=== PATIENT | female | born 1985 | race Two or more races ===

== ENCOUNTER 2019-07-27 15:13 | Emergency (ER) | payer MEDICAID, OTHER ==
[~2019-07-27] VITALS: Ht 165.1 cm; Wt 99.3 kg
[2019-07-27 16:34] VITALS: BP 129/78
== END 2019-07-27 17:14 | disposition home or self-care (01) ==
LOC: ER 15:13
DX: S01.21XA Laceration without foreign body of nose, initial encounter (principal); W23.0XXA Caught, crushed, jammed, or pinched between moving objects, initial encounter; Y93.89 Activity, other specified; Y92.89 Other specified places as the place of occurrence of the external cause; Y99.8 Other external cause status
CPT/HCPCS: 70160

== ENCOUNTER 2020-02-24 04:08 | Emergency (ER) | payer MEDICAID ==
[~2020-02-24] VITALS: Ht 165.1 cm; Wt 99.8 kg
[2020-02-24 04:16] VITALS: BP 147/91
[2020-02-24] MEDS ORDERED: hydrOXYzine HCL 25 MG/ML VL IM ONE (05:00)
[2020-02-24] MEDS ORDERED: hydrOXYzine 25 MG TAB or CAP PO ONE (05:15)
[2020-02-24 06:33] LABS: Eosinophils # (auto) 0.2 10 ^3/uL (0-0.8); Hemoglobin 13.8 g/dL (12.2-16.2); Lymphocytes # (auto) 2.7 10 ^3/uL (0.4-5.4)
[2020-02-24 06:35] LABS: Basophils # (auto) 0 10 ^3/uL (0-0.2); Basophils % (auto) 0.6 % (0.0-2.0); Eosinophils % (auto) 2.9 % (0.0-7.0); Hematocrit 41.8 % (36.0-46.0); Lymphocytes % (auto) 33.8 % (10.0-50.0); Mean Corpuscular Hemoglobin 26.2 pg (28.0-32.0); Mean Corpuscular Hgb Conc. 33.1 g/dL (32.0-36.0); Mean Corpuscular Volume 79.2 fL (80.0-100.0); Monocytes # (auto) 0.4 10 ^3/uL (0-1.3); Monocytes % (auto) 5.4 % (0.0-12.0); Neutrophils # (auto) 4.5 10 ^3/uL (1.6-8.6); Neutrophils % (auto) 57.3 % (37.0-80.0); Nucleated Red Blood Cells % 0.1 %; Platelet Count (auto) 257 10^3/uL (140-450); Red Blood Cells 5.28 10^6/uL (4.0-5.20); Red Cell Distribution Width 14.7 % (11.8-14.3); White Blood Cell 7.9 10^3/uL (4.4-10.8)
[2020-02-24 06:39] LABS: Albumin 3.7 g/dL (3.4-5.0); Anion Gap 7 (5-15); Blood Urea Nitrogen 10 mg/dL (7-18); Calcium 9.1 mg/dL (8.5-10.1); Carbon Dioxide 24 mmol/L (21-32); Chloride 106 mmol/L (98-107); Glucose 101 mg/dL (74-106); Sodium 137 mmol/L (136-145)
[2020-02-24 06:45] LABS: Alanine Aminotransferase 32 U/L (13-56); Alkaline Phosphatase 72 U/L (45-117); Aspartate Aminotransferase 17 U/L (15-37); BUN/Creatinine Ratio 15.9; Bilirubin, Total 0.2 mg/dL (0.2-1.0); GFR African American 138 mL/min; GFR Non-African American 114 mL/min; Total Protein 7.6 g/dL (6.4-8.2)
== END 2020-02-24 07:18 | disposition home or self-care (01) ==
LOC: ER 04:08 → EDBD 04:08 → ER 07:18
DX: F41.9 Anxiety disorder, unspecified (principal)
CPT/HCPCS: 36415; 80053; 84443; 84484; 85025

== ENCOUNTER 2020-02-24 09:30 | Emergency (ER) | payer MEDICAID ==
[~2020-02-24] VITALS: Ht 165.1 cm; Wt 99.3 kg
[2020-02-24 13:18] VITALS: BP 137/73
== END 2020-02-24 13:27 | disposition home or self-care (01) ==
LOC: ER 09:30
DX: F41.1 Generalized anxiety disorder (principal); R07.89 Other chest pain
CPT/HCPCS: 36415; 84484; 93005

== ENCOUNTER 2021-01-19 23:43 | Emergency (ER) | payer MEDICAID ==
[~2021-01-19] VITALS: Ht 160 cm; Wt 77.1 kg
[2021-01-20 01:54] VITALS: BP 115/63
[2021-01-20 02:12] LABS: Albumin 3.3 g/dL (3.4-5.0); BUN/Creatinine Ratio 16.7; Calcium 8.7 mg/dL (8.5-10.1); Potassium 3.3 mmol/L (3.5-5.1)
[2021-01-20 02:13] LABS: Basophils # (auto) 0.1 10 ^3/uL (0-0.2); Basophils % (auto) 1.3 % (0.0-2.0); Eosinophils # (auto) 0.1 10 ^3/uL (0-0.8); Eosinophils % (auto) 1.4 % (0.0-7.0); Hematocrit 39.3 % (36.0-46.0); Hemoglobin 13.7 g/dL (12.2-16.2); Lymphocytes # (auto) 3.2 10 ^3/uL (0.4-5.4); Mean Corpuscular Hemoglobin 26.8 pg (28.0-32.0); Mean Corpuscular Hgb Conc. 34.8 g/dL (32.0-36.0); Mean Corpuscular Volume 76.9 fL (80.0-100.0); Monocytes # (auto) 0.4 10 ^3/uL (0-1.3); Monocytes % (auto) 5.4 % (0.0-12.0); Neutrophils # (auto) 3.1 10 ^3/uL (1.6-8.6); Neutrophils % (auto) 44.9 % (37.0-80.0); Nucleated Red Blood Cells % 0.4 %; Red Cell Distribution Width 14.8 % (11.8-14.3); White Blood Cell 6.9 10^3/uL (4.4-10.8)
[2021-01-20 02:15] LABS: Bilirubin, Total 0.4 mg/dL (0.2-1.0); Total Protein 7.4 g/dL (6.4-8.2)
[2021-01-20] MEDS ORDERED: POTASSIUM CHL 20 Meq TABLET PO ONE (02:30)
== END 2021-01-20 04:36 | disposition home or self-care (01) ==
LOC: EDBD 23:43 → ER 23:47
DX: F41.9 Anxiety disorder, unspecified (principal); E86.0 Dehydration
CPT/HCPCS: 36415; 80053; 84702; 85025

== ENCOUNTER 2021-01-21 01:06 | Emergency (ER) | payer MEDICAID ==
[~2021-01-21] VITALS: Ht 165.1 cm; Wt 77.6 kg
[2021-01-21 05:10] VITALS: BP 123/91
[2021-01-21] MEDS ORDERED: hydrOXYzine 25 MG TAB or CAP PO ONE (06:45)
== END 2021-01-21 06:54 | disposition home or self-care (01) ==
LOC: ER 01:15
DX: J06.9 Acute upper respiratory infection, unspecified (principal); F41.9 Anxiety disorder, unspecified; F32.9 Major depressive disorder, single episode, unspecified; Z20.822 Contact with and (suspected) exposure to COVID-19
CPT/HCPCS: 36415; 87426

== ENCOUNTER 2021-01-21 20:19 | Emergency (ER) | payer MEDICAID ==
[~2021-01-21] VITALS: Ht 152.4 cm; Wt 99.8 kg
[2021-01-21 22:55] VITALS: BP 122/84
== END 2021-01-22 00:17 | disposition home or self-care (01) ==
LOC: EDBD 20:19 → ER 20:22
DX: J06.9 Acute upper respiratory infection, unspecified (principal)
CPT/HCPCS: 93005

== ENCOUNTER 2021-01-22 17:59 | Emergency (ER) | payer MEDICAID ==
[~2021-01-22] VITALS: Ht 165.1 cm; Wt 104.3 kg
[2021-01-22 19:22] LABS: Basophils # (auto) 0 10 ^3/uL (0-0.2); Eosinophils # (auto) 0.1 10 ^3/uL (0-0.8); Hemoglobin 13.5 g/dL (12.2-16.2); Monocytes # (auto) 0.4 10 ^3/uL (0-1.3); Neutrophils # (auto) 4.5 10 ^3/uL (1.6-8.6); Red Cell Distribution Width 15.1 % (11.8-14.3)
[2021-01-22 19:23] LABS: Basophils % (auto) 0.4 % (0.0-2.0); Eosinophils % (auto) 1.5 % (0.0-7.0); Hematocrit 39.5 % (36.0-46.0); Lymphocytes # (auto) 2.4 10 ^3/uL (0.4-5.4); Lymphocytes % (auto) 32.7 % (10.0-50.0); Mean Corpuscular Hemoglobin 26.6 pg (28.0-32.0); Mean Corpuscular Hgb Conc. 34.1 g/dL (32.0-36.0); Mean Corpuscular Volume 77.9 fL (80.0-100.0); Monocytes % (auto) 5.1 % (0.0-12.0); Neutrophils % (auto) 60.3 % (37.0-80.0); Nucleated Red Blood Cells % 0.1 %; Red Blood Cells 5.07 10^6/uL (4.0-5.20); White Blood Cell 7.5 10^3/uL (4.4-10.8)
[2021-01-22 19:40] LABS: Albumin 3.8 g/dL (3.4-5.0); Anion Gap 6 (5-15); Blood Urea Nitrogen 16 mg/dL (7-18); Calcium 8.7 mg/dL (8.5-10.1); Carbon Dioxide 24 mmol/L (21-32); Chloride 112 mmol/L (98-107); Glucose 92 mg/dL (74-106); Magnesium 2.5 mg/dL (1.6-2.6); Sodium 142 mmol/L (136-145)
[2021-01-22 19:46] LABS: Alanine Aminotransferase 39 U/L (13-56); Alkaline Phosphatase 58 U/L (45-117); Aspartate Aminotransferase 20 U/L (15-37); BUN/Creatinine Ratio 20.8; Bilirubin, Total 0.6 mg/dL (0.2-1.0); GFR African American 109 mL/min; GFR Non-African American 90 mL/min; Total Protein 8.1 g/dL (6.4-8.2)
[2021-01-23 01:00] VITALS: BP 126/76
== END 2021-01-23 04:35 | disposition home or self-care (01) ==
LOC: ER 18:03
DX: R07.89 Other chest pain (principal)
CPT/HCPCS: 36415; 71045; 80053; 83735; 84484; 84702; 85025; 93005

== ENCOUNTER 2021-02-02 18:23 | Emergency (ER) | payer MEDICAID ==
[~2021-02-02] VITALS: Ht 165.1 cm; Wt 99.8 kg
[2021-02-02 20:01] LABS: Basophils # (auto) 0 10 ^3/uL (0-0.2); Eosinophils # (auto) 0.2 10 ^3/uL (0-0.8); Eosinophils % (auto) 1.9 % (0.0-7.0); Hemoglobin 12.6 g/dL (12.2-16.2); Lymphocytes # (auto) 2.7 10 ^3/uL (0.4-5.4); Monocytes # (auto) 0.4 10 ^3/uL (0-1.3)
[2021-02-02 20:02] LABS: Basophils % (auto) 0.4 % (0.0-2.0); Hematocrit 37.1 % (36.0-46.0); Lymphocytes % (auto) 32.9 % (10.0-50.0); Mean Corpuscular Hemoglobin 26.6 pg (28.0-32.0); Mean Corpuscular Hgb Conc. 34.1 g/dL (32.0-36.0); Mean Corpuscular Volume 78.1 fL (80.0-100.0); Monocytes % (auto) 4.7 % (0.0-12.0); Neutrophils # (auto) 4.9 10 ^3/uL (1.6-8.6); Neutrophils % (auto) 60.1 % (37.0-80.0); Red Blood Cells 4.74 10^6/uL (4.0-5.20); Red Cell Distribution Width 15.2 % (11.8-14.3); White Blood Cell 8.2 10^3/uL (4.4-10.8)
[2021-02-02 20:21] LABS: Albumin 3.4 g/dL (3.4-5.0); Calcium 8.8 mg/dL (8.5-10.1); Potassium 3.8 mmol/L (3.5-5.1)
[2021-02-02 20:31] LABS: BUN/Creatinine Ratio 21.8; Bilirubin, Total 0.2 mg/dL (0.2-1.0); Total Protein 7.2 g/dL (6.4-8.2)
[2021-02-02 21:06] LABS: Urine Bacteria NONE SEEN /hpf (None Seen); Urine Blood TRACE /uL (Negative); Urine Mucus FEW (None Seen); Urine Specific Gravity 1.024 (1.001-1.035); Urine WBC 2 /hpf (0 - 5)
[2021-02-02 21:20] LABS: Alcohol, Urine < 3.0 mg/dL (0-10); Amphetamine Screen, Urine NEGATIVE (NEGATIVE); Barbiturate Scree,Urine NEGATIVE (NEGATIVE); Benzodiazephine Screen, Urine NEGATIVE (NEGATIVE); Cannabinoid Screen, Urine NEGATIVE (NEGATIVE); Cocaine Screen, Urine NEGATIVE (NEGATIVE); Opiate Scree,Urine NEGATIVE (NEGATIVE); Phencyclidine Screen, Urine NEGATIVE (NEGATIVE)
[2021-02-02 23:13] VITALS: BP 141/84
== END 2021-02-02 22:49 | disposition home or self-care (01) ==
LOC: EDBD 18:23 → ER 18:24
DX: R07.89 Other chest pain (principal)
CPT/HCPCS: 36415; 71046; 80053; 80307; 80320; 81001; 81025; 84484; 85025; 93005

== ENCOUNTER 2022-07-29 21:02 | Emergency (ER) | payer MEDICAID ==
[~2022-07-29] VITALS: Ht 160 cm; Wt 97.5 kg
[2022-07-29 22:32] LABS: Basophils # (auto) 0 10 ^3/uL (0-0.2); Basophils % (auto) 0.2 % (0.0-2.0); Eosinophils # (auto) 0.2 10 ^3/uL (0-0.8); Monocytes # (auto) 0.5 10 ^3/uL (0-1.3); Neutrophils # (auto) 4.8 10 ^3/uL (1.6-8.6); Nucleated Red Blood Cells % 0.1 %; White Blood Cell 8.8 10^3/uL (4.4-10.8)
[2022-07-29 22:34] LABS: Eosinophils % (auto) 2.7 % (0.0-7.0); Hematocrit 41.1 % (36.0-46.0); Hemoglobin 13.9 g/dL (12.2-16.2); Lymphocytes # (auto) 3.2 10 ^3/uL (0.4-5.4); Lymphocytes % (auto) 36.1 % (10.0-50.0); Mean Corpuscular Hgb Conc. 33.9 g/dL (32.0-36.0); Mean Corpuscular Volume 76.8 fL (80.0-100.0); Monocytes % (auto) 5.6 % (0.0-12.0); Neutrophils % (auto) 55.4 % (37.0-80.0); Red Blood Cells 5.36 10^6/uL (4.0-5.20)
[2022-07-29 22:43] LABS: Albumin 3.2 g/dL (3.4-5.0); Calcium 8.7 mg/dL (8.5-10.1); Potassium 3.6 mmol/L (3.5-5.1)
[2022-07-29 22:45] LABS: BUN/Creatinine Ratio 19.3
[2022-07-29 22:47] LABS: Bilirubin, Total 0.3 mg/dL (0.2-1.0); Total Protein 7.1 g/dL (6.4-8.2)
[2022-07-30 05:13] VITALS: BP 160/92
== END 2022-07-30 05:13 | disposition home or self-care (01) ==
LOC: EDBD 21:02 → ER 21:04
DX: R42 Dizziness and giddiness (principal); J32.9 Chronic sinusitis, unspecified; J33.9 Nasal polyp, unspecified; R10.2 Pelvic and perineal pain; F41.9 Anxiety disorder, unspecified; F32.9 Major depressive disorder, single episode, unspecified; I10 Essential (primary) hypertension; F20.9 Schizophrenia, unspecified
CPT/HCPCS: 36415; 70450; 71045; 80053; 80320; 83690; 84484; 84702; 85025; 93005

== ENCOUNTER 2023-05-25 20:37 | Inpatient (IN) | payer MEDICAID ==
[~2023-05-25] VITALS: Ht 165.1 cm; Wt 109.1 kg
[2023-05-25 22:24] LABS: Basophils # (auto) 0.1 10 ^3/uL (0-0.2); Basophils % (auto) 0.5 % (0.0-2.0); Eosinophils # (auto) 0.1 10 ^3/uL (0-0.8); Eosinophils % (auto) 1.3 % (0.0-7.0); Hematocrit 39.7 % (36.0-46.0); Hemoglobin 13.4 g/dL (12.2-16.2); Lymphocytes # (auto) 1.2 10 ^3/uL (0.4-5.4); Lymphocytes % (auto) 11.7 % (10.0-50.0); Mean Corpuscular Hemoglobin 25.7 pg (28.0-32.0); Mean Corpuscular Hgb Conc. 33.8 g/dL (32.0-36.0); Monocytes # (auto) 0.5 10 ^3/uL (0-1.3); Monocytes % (auto) 4.5 % (0.0-12.0); Neutrophils # (auto) 8.4 10 ^3/uL (1.6-8.6); Nucleated Red Blood Cells % 0.1 %; Red Blood Cells 5.22 10^6/uL (4.0-5.20); White Blood Cell 10.3 10^3/uL (4.4-10.8)
[2023-05-25 22:56] LABS: Alanine Aminotransferase 48 U/L (7-40); Albumin 4.2 g/dL (3.2-4.8); Alkaline Phosphatase 59 U/L (46-116); Anion Gap 8 (5-15); Aspartate Aminotransferase 89 U/L (13-40); BUN/Creatinine Ratio 9.2 (10.0-20.0); Bilirubin, Total 0.3 mg/dL (0.2-1.0); Blood Alcohol < 3.0 mg/dL (<10); Blood Urea Nitrogen 6 mg/dL (9-23); Calcium 9.1 mg/dL (8.7-10.4); Carbon Dioxide 22 mmol/L (20-30); Chloride 105 mmol/L (98-107); Glucose 115 mg/dL (74-106); Potassium 3.4 mmol/L (3.5-5.1); Sodium 135 mmol/L (136-145)
[2023-05-25 22:57] LABS: Total Protein 7.3 g/dL (5.7-8.2)
[2023-05-25 22:58] LABS: Lactic Acid w/Reflex 2.6 mmol/L (0.4-2.0)
[2023-05-25] MEDS ORDERED: ACETAMINOPHEN 325 MG TAB PO ONE (23:30)
[2023-05-26 00:42] VITALS: PULSE 113; RESP 15; O2SAT 95
[2023-05-26 02:30] LABS: Amphetamine Screen, Urine Neg (NEGATIVE)
[2023-05-26 02:31] LABS: Barbiturate Scree,Urine Neg (NEGATIVE); Benzodiazephine Screen, Urine Neg (NEGATIVE); Cannabinoid Screen, Urine Neg (NEGATIVE); Cocaine Screen, Urine Neg (NEGATIVE); Opiate Scree,Urine Neg (NEGATIVE); Phencyclidine Screen, Urine Neg (NEGATIVE)
[2023-05-26 02:36] LABS: Urine Bacteria NONE SEEN /hpf (None Seen); Urine Blood Negative /uL (Negative); Urine Clarity Clear (Clear); Urine Color Colorless (Yellow); Urine Protein, UAD TRACE (Negative); Urine Specific Gravity 1.016 (1.001-1.035); Urine Urobilinogen Normal (Negative); Urine WBC <1 /hpf (0 - 5); Urine pH 6.5 (5.0-8.0)
[2023-05-26] MEDS ORDERED: HALOPERIDOL LACTATE 5 MG/ML INJ VIAL IM ONE (03:00)
[2023-05-26] MEDS ORDERED: diphenhdrAMINE HCL 50 MG/1 ML VL IV ONE (03:00)
[2023-05-26 07:45] VITALS: PULSE 107; RESP 20; O2SAT 92
[2023-05-26] MEDS ORDERED: POTASSIUM EFFERVESENT TAB 25 MEQ PO ONE (10:00)
[2023-05-26] MEDS ORDERED: SODIUM CHLORIDE 0.9% 3,250 ML IV ONE (10:00)
[2023-05-26] MEDS ORDERED: PIPERACILLIN-TAZO 4.5GM 100 ML IV ONE (10:00)
[2023-05-26 11:06] LABS: Magnesium 1.8 mg/dL (1.6-2.6)
[2023-05-26] MEDS ORDERED: ACETAMINOPHEN 325 MG TAB PO PRN (16:00)
[2023-05-26] MEDS ORDERED: MORPHINE SULFATE INJ 2 MG/ml SYRG IV PRN (16:00)
[2023-05-26] MEDS ORDERED: ONDANSETRON HCL 4 MG/2 ML VIAL IV PRN (16:00)
[2023-05-26] MEDS ORDERED: HYDROcodone-ACET 5/325MG TAB PO PRN (16:00)
[2023-05-26] MEDS ORDERED: DOCUSATE SOD 100 MG CAP PO PRN (16:00)
[2023-05-26] MEDS ORDERED: DEXTROSE (50%) 50ML SYRG IV PRN (17:00)
[2023-05-26] MEDS: InsuLIN REG 1unit/0.01ml Soln (100units/ml) SC SCH ×2 (17:00→21:56)
[2023-05-26] MEDS: ACCU-CHEK COMFORT CURVE STRIP VI SCH ×2 (18:41→22:00)
[2023-05-26] MEDS: SODIUM CHLORIDE 0.9% 1,000 ML IV SCH ×2 (18:41→22:44)
[2023-05-26] MEDS ORDERED: LABETALOL HCL 5 MG/ML 4ML SYRINGE IV ONE (19:00)
[2023-05-26 19:45] VITALS: PULSE 93; RESP 20; O2SAT 94
[2023-05-26] MEDS: AMPICILLIN & SULBACTAM SODIUM 3 GM in SODIUM CHL 0.9% 100 ML IV SCH ×2 (19:53→22:45)
[2023-05-27] MEDS: AMPICILLIN & SULBACTAM SODIUM 3 GM in SODIUM CHL 0.9% 100 ML IV SCH ×2 (04:45→11:53)
[2023-05-27 05:27] LABS: Basophils # (auto) 0 10 ^3/uL (0-0.2); Eosinophils # (auto) 0 10 ^3/uL (0-0.8); Hemoglobin 11.9 g/dL (12.2-16.2); Lymphocytes # (auto) 1.8 10 ^3/uL (0.4-5.4); Mean Corpuscular Hemoglobin 25.6 pg (28.0-32.0); Mean Corpuscular Hgb Conc. 33.4 g/dL (32.0-36.0); Monocytes # (auto) 0.6 10 ^3/uL (0-1.3); Neutrophils # (auto) 3.1 10 ^3/uL (1.6-8.6); Red Blood Cells 4.64 10^6/uL (4.0-5.20); White Blood Cell 5.5 10^3/uL (4.4-10.8)
[2023-05-27 05:30] LABS: Basophils % (auto) 0.3 % (0.0-2.0); Hematocrit 35.7 % (36.0-46.0); Lymphocytes % (auto) 32.7 % (10.0-50.0); Mean Corpuscular Volume 76.9 fL (80.0-100.0); Monocytes % (auto) 10.8 % (0.0-12.0); Neutrophils % (auto) 56.2 % (37.0-80.0); Red Cell Distribution Width 16.3 % (11.8-14.3)
[2023-05-27] MEDS: SODIUM CHLORIDE 0.9% 1,000 ML IV SCH ×2 (05:30→11:57)
[2023-05-27 05:50] LABS: Alanine Aminotransferase 71 U/L (7-40); Albumin 3.7 g/dL (3.2-4.8); Alkaline Phosphatase 46 U/L (46-116); Anion Gap 10 (5-15); Aspartate Aminotransferase 124 U/L (13-40); Bilirubin, Total 0.3 mg/dL (0.2-1.0); Calcium 8.2 mg/dL (8.5-10.1); Carbon Dioxide 22 mmol/L (20-30); Chloride 106 mmol/L (98-107); Cholesterol 116 mg/dL (< 200); Glucose 117 mg/dL (74-106); HDL Cholesterol 41 mg/dL (40-59); LDL Cholesterol 57 mg/dL (< 100); Potassium 3.1 mmol/L (3.5-5.1); Sodium 138 mmol/L (136-145); Total Protein 6.4 g/dL (5.7-8.2); Triglycerides 101 mg/dL (< 150)
[2023-05-27 05:58] LABS: BUN/Creatinine Ratio 8.9 (10.0-20.0); Blood Urea Nitrogen < 5 mg/dL (9-23)
[2023-05-27] MEDS: InsuLIN REG 1unit/0.01ml Soln (100units/ml) SC SCH ×4 (06:37→22:00)
[2023-05-27] MEDS: ACCU-CHEK COMFORT CURVE STRIP VI SCH ×4 (06:37→23:35)
[2023-05-27] MEDS: ABILIFY 5 MG PO SCH (06:38)
[2023-05-27 09:38] VITALS: BP 138/91; PULSE 84; RESP 20; TEMP 98.4; O2SAT 95
[2023-05-27 13:00] VITALS: BP 130/76; PULSE 83; RESP 20; TEMP 98.4; O2SAT 95
[2023-05-27] MEDS ORDERED: POTASSIUM EFFERVESENT TAB 25 MEQ PO ONE (13:00)
[2023-05-27] MEDS: LORazepam 2MG/ML-1ML VIAL IV PRN (14:42)
[2023-05-27 16:00] VITALS: BP 129/82; PULSE 79; RESP 20; TEMP 97.9; O2SAT 94
[2023-05-27] MEDS: OLANZapine 5 MG TAB PO SCH ×2 (18:04→23:36)
[2023-05-27 20:00] VITALS: RESP 18
[2023-05-27 22:00] VITALS: BP 158/95; PULSE 87; RESP 16; TEMP 98.2; O2SAT 98
[2023-05-28] VITALS: BP 158/95; PULSE 87; RESP 18; TEMP 97.8; O2SAT 98
[2023-05-28 05:00] VITALS: BP 103/74; PULSE 74; RESP 16; TEMP 98; O2SAT 98
[2023-05-28] MEDS: ACCU-CHEK COMFORT CURVE STRIP VI SCH ×4 (05:48→21:08)
[2023-05-28] MEDS: OLANZapine 5 MG TAB PO SCH ×2 (05:48→11:37)
[2023-05-28] MEDS: InsuLIN REG 1unit/0.01ml Soln (100units/ml) SC SCH ×4 (05:49→21:09)
[2023-05-28] MEDS: ABILIFY 5 MG PO SCH (05:58)
[2023-05-28 06:17] LABS: Chloride 106 mmol/L (98-107); Potassium 3.5 mmol/L (3.5-5.1); Sodium 137 mmol/L (136-145)
[2023-05-28 06:18] LABS: Anion Gap 9 (5-15); Calcium 8.3 mg/dL (8.7-10.4); Carbon Dioxide 22 mmol/L (20-30)
[2023-05-28 06:23] LABS: BUN/Creatinine Ratio 5.5 (10.0-20.0); Blood Urea Nitrogen 5 mg/dL (9-23); Glucose 112 mg/dL (74-106)
[2023-05-28 08:00] VITALS: BP 101/63; PULSE 61; O2SAT 95
[2023-05-28 20:00] VITALS: RESP 18
[2023-05-28] MEDS: LORazepam 2MG/ML-1ML VIAL IV PRN (21:09)
[2023-05-28 22:00] VITALS: BP 155/90; PULSE 94; RESP 14; TEMP 98; O2SAT 96
[2023-05-29 05:00] VITALS: BP 131/90; PULSE 89; RESP 18; TEMP 97.9; O2SAT 94
[2023-05-29] MEDS: ACCU-CHEK COMFORT CURVE STRIP VI SCH ×3 (06:23→17:00)
[2023-05-29] MEDS: InsuLIN REG 1unit/0.01ml Soln (100units/ml) SC SCH ×3 (06:23→17:00)
[2023-05-29 08:00] VITALS: BP 145/93; PULSE 77; RESP 19; TEMP 98.2; O2SAT 97
[2023-05-29] MEDS ORDERED: OLANZapine 5 MG TAB PO SCH (10:00)
[2023-05-29 13:00] VITALS: BP 126/77; PULSE 78; RESP 19; TEMP 98.2; O2SAT 94
[2023-05-29 15:50] VITALS: BP 145/93; PULSE 77; RESP 19; TEMP 98.2; O2SAT 97
== END 2023-05-29 17:23 ==
LOC: EDBD 20:37 → ER 20:37 → OVERFLOW 05-26 15:59 → WEST WING 05-27 08:56
PROVIDERS: ADMIT Nurse Practitioner Family; ATTEND Nurse Practitioner Acute Care
DX: K80.20 Calculus of gallbladder without cholecystitis without obstruction (principal); K76.0 Fatty (change of) liver, not elsewhere classified; O03.83 Metabolic disorder following complete or unspecified spontaneous abortion; E66.9 Obesity, unspecified; E87.6 Hypokalemia; Z68.41 Body mass index [BMI] 40.0-44.9, adult; E11.9 Type 2 diabetes mellitus without complications; F32.A Depression, unspecified; I10 Essential (primary) hypertension; F41.9 Anxiety disorder, unspecified; F23 Brief psychotic disorder; Z71.3 Dietary counseling and surveillance
CPT/HCPCS: 36415; 76705; 78226; 80048; 80053; 80061; 80307; 80320; 81001; 81025; 82140; 82962; 83036; 83605; 83690; 83735; 84702; 85025; 87040; 87493; G0378; J1815; J2543; J3490